=== PATIENT | female | born 1980 | race Caucasian/White ===

== ENCOUNTER → 2018-05-31 | Outpatient (CLI) | payer OTHER ==
[~2018-05-31] MED LIST: AZIT250 PO; CEPH500 PO; HYDACE5 PO; RXHYDACE PO
[2018-06-01 14:08] LABS: HPV 16 Negative (Negative); HPV 18 Negative (Negative); HPV OTHER HR TYPES Negative (Negative)
== END ==
LOC: LAB SHORT 11:47 → LAB 11:47
PROVIDERS: Registered Nurse Community Health
DX: Z01.419 Encounter for gynecological examination (general) (routine) without abnormal findings (principal)
CPT/HCPCS: 87624; G0123

== ENCOUNTER 2018-12-02 22:19 | Emergency (ER) | payer OTHER ==
[~2018-12-02] VITALS: Ht 170.2 cm; Wt 104.3 kg
[2018-12-03] MEDS ORDERED: Prednisone20 MG PO (00:07)
[2018-12-03] MEDS ORDERED: PEPCID40 MG PO (00:07)
== END 2018-12-03 00:10 | disposition home or self-care (01) ==
LOC: ER 22:19
DX: L50.0 Allergic urticaria (principal); K21.9 Gastro-esophageal reflux disease without esophagitis; Z88.0 Allergy status to penicillin; Z87.891 Personal history of nicotine dependence
CPT/HCPCS: 96372; 99282-25; J2930

== ENCOUNTER 2018-12-04 07:42 | Emergency (ER) | payer OTHER ==
[~2018-12-04] VITALS: Ht 170.2 cm; Wt 104.3 kg
[~2018-12-04 07:42] MED LIST changes: +PEPCID40 MG PO; +Prednisone20 MG PO
== END 2018-12-04 08:14 | disposition home or self-care (01) ==
LOC: ER 07:42
DX: L50.9 Urticaria, unspecified (principal); Z87.891 Personal history of nicotine dependence
CPT/HCPCS: 96372; 99282-25; J3301

== ENCOUNTER 2019-01-06 00:33 | Emergency (ER) | payer OTHER ==
[~2019-01-06] VITALS: Ht 170.2 cm; Wt 95.2 kg
[2019-01-06] MEDS ORDERED: Prednisone20 MG PO (00:55)
== END 2019-01-06 01:20 | disposition home or self-care (01) ==
LOC: ER 00:33
DX: L50.0 Allergic urticaria (principal); Z88.0 Allergy status to penicillin; Z87.891 Personal history of nicotine dependence
CPT/HCPCS: 96372; 99283-25; J3301

== ENCOUNTER 2019-01-09 10:55 | Emergency (ER) | payer OTHER ==
[~2019-01-09] VITALS: Ht 170.2 cm; Wt 95.2 kg
[2019-01-09] MEDS ORDERED: CLARITIN10 MG PO (12:00)
[2019-01-09] MEDS ORDERED: PEPCID40 MG PO (12:00)
== END 2019-01-09 12:09 | disposition home or self-care (01) ==
LOC: ER 10:55
DX: L50.9 Urticaria, unspecified (principal); Z87.891 Personal history of nicotine dependence; Z88.0 Allergy status to penicillin; Z79.52 Long term (current) use of systemic steroids
CPT/HCPCS: 99282

== ENCOUNTER 2019-01-11 06:18 | Emergency (ER) | payer OTHER ==
[~2019-01-11] VITALS: Ht 170.2 cm; Wt 95.2 kg
[~2019-01-11 06:18] MED LIST changes: +CLARITIN10 MG PO
[2019-01-11] MEDS ORDERED: Prednisone20 MG PO (06:44)
== END 2019-01-11 06:56 | disposition home or self-care (01) ==
LOC: ER 06:18
DX: L50.9 Urticaria, unspecified (principal); Z88.0 Allergy status to penicillin; Z79.899 Other long term (current) drug therapy; Z79.52 Long term (current) use of systemic steroids; Z87.891 Personal history of nicotine dependence
CPT/HCPCS: 99282; J7512; Q0163

== ENCOUNTER → 2021-09-10 | Outpatient (CLI) | payer OTHER ==
[2021-09-12 13:23] LABS: HPV 16 Negative (Negative); HPV 18 Negative (Negative); HPV OTHER HR TYPES Negative (Negative)
== END ==
LOC: LAB 11:33 → LAB SHORT 11:33
PROVIDERS: Registered Nurse Community Health
DX: Z12.4 Encounter for screening for malignant neoplasm of cervix (principal)
CPT/HCPCS: 87624; G0123

== ENCOUNTER 2021-10-30 08:52 | Day surgery (SDC) | payer OTHER ==
[~2021-10-30] VITALS: Ht 170.2 cm; Wt 92.3 kg
[2021-10-30] MEDS ORDERED: ZYRTEC10 M4 PO (09:32)
[2021-10-30] MEDS ORDERED: MONT10T PO (09:32)
[2021-10-30] MEDS ORDERED: SERT100 PO (09:32)
[2021-10-30] MEDS ORDERED: GABA100 PO (09:33)
--- NOTE | 2021-10-30 09:47 | NUR ---
10/30/21 0947 Chino Diaz CALL LIGHT WITHIN REACH.
== END 2021-10-30 11:48 | disposition home or self-care (01) ==
LOC: ORSCSDS 08:52
PROVIDERS: Obstetrics & Gynecology
PROC: 0UDB8ZX Extraction of Endometrium, Via Natural or Artificial Opening Endoscopic, Diagnostic (ICD-10-PCS; principal; 2021-10-30 10:30)
PROC: 0U5B8ZZ Destruction of Endometrium, Via Natural or Artificial Opening Endoscopic (ICD-10-PCS; principal; 2021-10-30 10:30)
DX: N92.1 Excessive and frequent menstruation with irregular cycle (principal); N94.6 Dysmenorrhea, unspecified; J45.909 Unspecified asthma, uncomplicated; K21.9 Gastro-esophageal reflux disease without esophagitis; F41.8 Other specified anxiety disorders; Z79.899 Other long term (current) drug therapy; Z87.891 Personal history of nicotine dependence
CPT/HCPCS: 88305; A9270; J1100; J2250; J2405; J2704; J3010

== ENCOUNTER 2022-12-26 22:25 | Emergency (ER) | payer OTHER ==
[~2022-12-26] VITALS: Ht 170.2 cm; Wt 95.2 kg
[~2022-12-26 22:25] MED LIST changes: +GABA100 PO; +MONT10T PO; +SERT100 PO; +ZYRTEC10 M4 PO
[2022-12-26 23:03] LABS: BASOPHILS ABSOLUTE AUTO 0.09 K/mm3 (0.00-0.23); BASOPHILS PERCENT AUTO 1 % (0-2); EOSINOPHILS ABSOLUTE AUTO 0.17 K/mm3 (0.00-0.68); EOSINOPHILS PERCENT AUTO 1 % (0-6); IMMATURE GRAN ABSOLUTE AUTO 0.06 K/mm3 (0.00-0.10); IMMATURE GRAN PERCENT AUTO 1 % (0-1); LYMPHOCYTES ABSOLUTE AUTO 2.15 K/mm3 (0.84-5.20); LYMPHOCYTES PERCENT AUTO 17 % (21-46); MONOCYTES ABSOLUTE AUTO 0.46 K/mm3 (0.16-1.47); MONOCYTES PERCENT AUTO 4 % (4-13); Mean Corpuscular HGB 29.5 pg (26.0-34.0); Mean Corpuscular HGB Conc 34.1 g/dL (31.5-36.5); Mean Corpuscular Volume 86 fL (80-100); Mean Platelet Volume 10.6 fL (9.1-12.4); NEUTROPHILS ABSOLUTE AUTO 9.55 K/mm3 (1.96-9.15); NEUTROPHILS PERCENT AUTO 77 % (41-73); Platelet Count 340 K/mm3 (150-400); RDW Coefficient Variation 13.8 % (11.7-14.2); RDW Standard Deviation 43.7 fL (35.1-46.3); Red Blood Cell Count 4.75 M/mm3 (3.80-5.20); White Blood Cell Count 12.48 K/mm3 (4.00-11.30)
[2022-12-26 23:25] LABS: Albumin, Blood 4.2 g/dL (3.4-5.0); Albumin/Globulin Ratio 1.1 (0.8-1.8); Bilirubin, Total 0.3 mg/dL (0.1-1.0); Bun/Creatinine Ratio 18.4 (12.0-20.0); Calcium, Blood 9.2 mg/dL (8.5-10.1); Creatinine, Blood 0.76 mg/dL (0.40-1.00); Globulin, Blood 3.7 g/dL (2.2-4.0); Magnesium, Blood 2.1 mg/dL (1.6-2.4); Potassium, Blood 3.8 mmol/L (3.5-5.5); Total Protein, Blood 7.9 g/dL (6.4-8.2)
[2022-12-26 23:43] LABS: International Normalized Ratio 0.96; Prothrombin Time Results 10.1 Sec (9.7-11.5)
[2022-12-27] MEDS ORDERED: METO10 PO (03:13)
[2022-12-27] MEDS ORDERED: ONDA4ODT MM (03:13)
[2022-12-27] MEDS ORDERED: PROM12.5S PR (03:14)
[2022-12-27 03:24] VITALS: BP 105/86
== END 2022-12-27 03:24 | disposition home or self-care (01) ==
LOC: ER 22:25
PROVIDERS: Student in an Organized Health Care Education/Training Program
DX: A08.4 Viral intestinal infection, unspecified (principal); Z88.0 Allergy status to penicillin; Z88.5 Allergy status to narcotic agent; Z88.1 Allergy status to other antibiotic agents; Z79.899 Other long term (current) drug therapy; J45.909 Unspecified asthma, uncomplicated; Z87.891 Personal history of nicotine dependence
CPT/HCPCS: 74177; 80053; 83690; 83735; 85025; 85610; 85730; 86850; 86900; 86901; 93005; 93010; 96374-59; 96375; 96376; 99284-25; A9270; J0780; J1790; J2405; J2765; J7030; Q9967

== ENCOUNTER 2023-06-24 07:43 | Day surgery (SDC) | payer OTHER ==
[~2023-06-24] VITALS: Ht 170 cm; Wt 101.2 kg
[2023-06-24] VITALS (10 sets, daily range): BP systolic 115–196; BP diastolic 68–169
[~2023-06-24 07:43] MED LIST changes: +Lactated Ringer's 1,000 ML IV SCH; +METO10 PO; +ONDA4ODT MM; +PROM12.5S PR
[2023-06-24] MEDS ORDERED: ALBU90OI INH (08:48)
--- NOTE | 2023-06-24 08:57 | NUR ---
History, Chart, Medications and Allergies reviewed before start of procedure. Patient up to Ambulate independently. Gait steady. Pre-Op teaching done. Pt verbalizes understanding. Patient confirms NPO status and agrees with scheduled surgery. Lungs clear T/O to Auscultation. Patient States Post-Procedure ride home has been arranged.
--- NOTE | 2023-06-24 09:24 | NUR ---
06/24/23 0924 Tanya Rubin HISTORY, CHART, MEDICATIONS AND ALLERGIES REVIEWED BEFORE START OF PROCEDURE. PATIENT CONFIRMS NPO STATUS AND AGREES WITH SCHEDULED PROCEDURE. 3-LEAD EKG REVIEWED WITH PHYSICIAN PRIOR TO START OF PROCEDURE. MONITOR INTACT WITH CONTINUOUS PULSE OXIMETRY,CAPNOGRAPHY, 3-LEAD EKG, INTERMITTENT BP. SUPPLEMENTAL O2 TO BE TITRATED THROUGHOUT PROCEDURE TO MAINTAIN O2 SATURATION ABOVE 90%. PATIENT DETERMINED TO BE ASA APPROPRIATE FOR PROPOFOL SEDATION PRIOR TO START OF PROCEDURE BY
[2023-06-24] MEDS ORDERED: propofoL 40 ML IV ONE (09:27)
[2023-06-24] MEDS ORDERED: Benzocaine Oral Spray 0.5ML UD ONE (09:31)
== END 2023-06-24 22:38 | disposition home or self-care (01) ==
LOC: ORSCMMR 07:43 → ORD 09:00 → ORSCMMR 22:38
PROVIDERS: Internal Medicine Gastroenterology
PROC: 0DB98ZX Excision of Duodenum, Via Natural or Artificial Opening Endoscopic, Diagnostic (ICD-10-PCS; principal; 2023-06-24 09:00)
PROC: 0DB68ZX Excision of Stomach, Via Natural or Artificial Opening Endoscopic, Diagnostic (ICD-10-PCS; principal; 2023-06-24 09:00)
PROC: 0DB48ZX Excision of Esophagogastric Junction, Via Natural or Artificial Opening Endoscopic, Diagnostic (ICD-10-PCS; principal; 2023-06-24 09:00)
DX: R10.13 Epigastric pain (principal); K22.70 Barrett's esophagus without dysplasia; K29.50 Unspecified chronic gastritis without bleeding; J45.909 Unspecified asthma, uncomplicated; F32.A Depression, unspecified; K21.00 Gastro-esophageal reflux disease with esophagitis, without bleeding; F17.210 Nicotine dependence, cigarettes, uncomplicated; Z68.35 Body mass index [BMI] 35.0-35.9, adult; Z79.899 Other long term (current) drug therapy
CPT/HCPCS: 88305; 88342; A9270; J2704; J7120